=== PATIENT | female | born 1955 | race Caucasian/White ===

== ENCOUNTER 2021-03-25 01:21 | Emergency (ER) | payer MEDICARE, OTHER ==
[2021-03-25] MEDS ORDERED: HYDROmorphone 0.5 MG/0.5 ML Syringe IM ONE (01:49)
--- NOTE | 2021-03-25 01:52 | EDM.PDOC ---
ED HPI GENERAL MEDICAL PROBLEM - General Chief Complaint: Upper Extremity Injury/Pain Stated Complaint: WRIST INJURY Time Seen by Provider: 03/25/21 01:43 Source of Information: Reports: Patient, Family History Limitations: Reports: No Limitations - History of Present Illness INITIAL COMMENTS - FREE TEXT/NARRATIVE: Marilee Mendenhall is a 65-year-old female from [place] who is vacationing up here and presents to the ED for evaluation of bilateral wrist pain, right elbow pain, and right foot pain after slipping and falling down a stairway resulting in her hitting her head on the ground. The patient was in her usual state of health going down a curved stairway when she missed stepped causing her to fall down about 4-5 stairs landing on outstretched arms and striking her head on the ground. There was no loss of consciousness. The patient denies any vision changes, headache, nausea or vomiting. She has substantial bilateral wrist pain and elbow pain with deformity of the right wrist. She did reports numbness in the right third digit. She has limited range of motion since the fall. She also thinks that she injured her right foot in the fall. bilateral lower arms Pain Score (Numeric/FACES): 10 - Related Data Allergies Allergy/AdvReac Type Severity Reaction Status Date / Time No Known Allergies Allergy Verified 03/25/21 01:51 Home Meds: Home Meds NK [No Known Home Meds] 03/25/21 [History] Social & Family History - Tobacco Use Tobacco Use Status *Q: Never Tobacco User - Caffeine Use Caffeine Use: Reports: Coffee - Recreational Drug Use Recreational Drug Use: No Review of Systems - Review of Systems Review Of Systems: See Below Constitutional: Reports: No Symptoms Eyes: Reports: No Symptoms Ears: Reports: No Symptoms, Previous Injury Nose: Reports: No Symptoms Mouth/Throat: Reports: No Symptoms Respiratory: Reports: No Symptoms Cardiovascular: Reports: No Symptoms GI/Abdominal: Reports: No Symptoms Genitourinary: Reports: No Symptoms Musculoskeletal: Reports: Foot Pain (Right foot pain), Joint Pain (Bilateral wrist pain, right elbow pain), Joint Swelling (Bilateral wrist swelling) Skin: Reports: Wound (Puncture wound on the volar distal forearm likely due to the proximal segment of the fractured radius coming through the skin), Other (Abrasion on the lateral right elbow) Neurological: Reports: Confusion (Initially after the fall and hitting her head the patient exhibited confusion for about 5 minutes. Currently denies any headache) Psychiatric: Reports: No Symptoms ED EXAM, GENERAL - Physical Exam Exam: See Below Exam Limited By: No Limitations General Appearance: Alert, Moderate Distress, Obese Eye Exam: Bilateral Eye: EOMI, PERRL Ears: Normal External Exam, Normal TMs Nose: Normal Inspection Throat/Mouth: Normal Inspection, Normal Lips, Normal Oropharynx, Normal Voice, No Airway Compromise Head: Atraumatic, Normocephalic Neck: Normal Inspection, Supple, Non-Tender Respiratory/Chest: No Respiratory Distress, Lungs Clear, Normal Breath Sounds Cardiovascular: Normal Peripheral Pulses, Regular Rate, Rhythm, No Murmur Back Exam: Normal Inspection Extremities: Normal Capillary Refill, Joint Swelling (Obvious swelling and deformity of the right wrist with swelling of the volar region. There is a puncture wound likely due to the proximal segment of the fractured radius coming through the skin. Significant swelling of the left wrist with less obvious deformity.), Limited Range of Motion (Limited range of motion of both wrists) Neurological: Alert, Oriented, CN II-XII Intact, Normal Cognition, Sensory/Motor Deficit (Numbness in the right third finger.) Psychiatric: Normal Affect, Normal Mood Skin Exam: Warm, Dry, Wound/Incision (Puncture wound on the volar distal forearm on the right likely due to an open fracture.) Lymphatic: No Adenopathy ED TRAUMA EXTREMITY PROCEDURES - Splinting Left Upper Extremity Splint Site: Left wrist Pre-Procedure NV Status: Normal Post-Procedure NV Status: Normal Splint Material: Fiberglass Splint Design: Sugar Tong Applied & Form Fitted By: Provider Provider Post-Splint Application NV Check: NV Status Normal, Good Position Complications: No Right Upper Extremity Splint Site: Right wrist Pre-Procedure NV Status: Abnormal (Numbness and tingling in the right third finger) Post-Procedure NV Status: Abnormal (Numbness and tingling in the right third finger persists but no new change in neurovascular status) Splint Material: Fiberglass Splint Design: Sugar Tong Applied & Form Fitted By: Provider Provider Post-Splint Application NV Check: Good Position Complications: No Course - Vital Signs Last Recorded V/S: Last Vital Signs Temp 36.3 C 03/25/21 01:49 Pulse 80 03/25/21 01:49 Resp 15 03/25/21 01:49 BP 155/88 H 03/25/21 01:49 Pulse Ox 97 03/25/21 01:49 - Orders/Labs/Meds Orders: Active Orders 24 hr Category Date Time Status Elbow Min 3V Rt [CR] Stat Exams 03/25/21 02:17 Taken Foot Comp Min 3V Rt [CR] Stat Exams 03/25/21 01:49 Taken Head wo Cont [CT] Stat Exams 03/25/21 01:49 Taken Wrist Comp Min 3V Bi [CR] Stat Exams 03/25/21 01:49 Ordered Meds: Medications Discontinued Medications Generic Name Dose Route Start Last Admin Trade Name Freq PRN Reason Stop Dose Admin Hydromorphone HCl 0.5 mg 03/25/21 01:49 03/25/21 02:05 Hydromorphone 0.5 Mg/0.5 Ml Syringe IM 03/25/21 01:50 0.5 mg ONETIME ONE Administration - Radiology Interpretation Free Text/Narrative:: I reviewed the x-ray of the right foot: No evidence for acute osseous abnormalities. I reviewed the three-view x-ray of the right elbow: There is no evidence for acute osseous abnormalities. There is no anterior posterior sail sign. I reviewed the 6 view x-ray of the bilateral wrists: There is significant displacement of the distal right radius and ulna with dorsal angulation and lateral shifting. There is impaction of the distal left radial head with 50 to 60 degree dorsal angulation of the distal segment. There is a left ulnar styloid fracture that is minimally displaced. I reviewed the CT of the head without contrast showing no acute intracranial abnormalities including hemorrhage, mass, or midline shift. There is no acute cranial abnormalities. - Re-Assessments/Exams Free Text/Narrative Re-Assessment/Exam: 03/25/21 03:19 diaz the findings of the CT of the head and x-rays with the family. She has a significantly displaced open fracture of the right wrist with marked lateral displacement of the distal segments of the radius and ulna as well as dorsal angulation of both. The left wrist shows impaction of the distal radial head with dorsal angulation of the distal segment approximately 50 to 60 degrees and a mildly displaced left ulnar styloid fracture. X-rays of the right foot and right elbow are unremarkable for acute changes. CT of the head without contrast was unremarkable for any acute abnormalities including hemorrhage, mass, or midline shift. There were no cranial abnormalities noted either. As the right wrist fracture is an open fracture likely due to bone coming through the skin, will the patient was given Ancef 1 g IV and we updated her tetanus with a Tdap. This will likely need surgical intervention and they are normally [place] patient so I contacted [facility] to arrange for transfer and further evaluation by the trauma service. I discussed the case with Dr. Painting in the emergency room who accepts the patient in transfer. The patient will go by private vehicle. We will give her a dose of Dilaudid after completion of her Ancef prior to going by private vehicle. Departure - Departure Time of Disposition: 04:15 Disposition: DC/Tfer to [facility] 02 Clinical Impression: Contusion of right elbow, initial encounter, Right foot pain Open fracture of right distal radius and ulna Qualifiers: Encounter type: initial encounter Open fracture type: open type I or II Qualified Code(s): S52.501B - Unspecified fracture of the lower end of right radius, initial encounter for open fracture type I or II; S52.601B - Unspecified fracture of lower end of right ulna, initial encounter for open fracture type I or II Closed fracture of distal end of left radius with ulna Qualifiers: Encounter type: initial encounter Qualified Code(s): S52.502A - Unspecified fracture of the lower end of left radius, initial encounter for closed fracture; S52.602A - Unspecified fracture of lower end of left ulna, initial encounter for closed fracture Fall down stairs Qualifiers: Encounter type: initial encounter Qualified Code(s): W10.8XXA - Fall (on) (from) other stairs and steps, initial encounter Head injury, closed, without LOC Qualifiers: Encounter type: initial encounter Qualified Code(s): S09.90XA - Unspecified injury of head, initial encounter - Discharge Information Instructions: Cast or Splint Care, Adult, [id number], Elbow Contusion, [id number], Radial Fracture, Head Injury, Adult, [id number], Foot Pain, Ulnar Fracture Referrals: PCP,None [Primary Care Provider] - Forms: ED Department Discharge Sepsis Event Note (ED) - Evaluation Sepsis Screening Result: No Definite Risk - Focused Exam Vital Signs: Vital Signs Temp Pulse Resp BP Pulse Ox 03/25/21 01:49 36.3 C 80 15 155/88 H 97 03/25/21 01:47 36.3 C 80 15 155/88 H 97 - Problem List & Annotations (1) Closed fracture of distal end of left radius with ulna SNOMED Code(s): 72048147 Code(s): S52.502A - UNSP FRACTURE OF THE LOWER END OF LEFT RADIUS, INIT; S52.602A - UNSP FRACTURE OF LOWER END OF LEFT ULNA, INIT FOR CLOS FX Status: Acute Priority: High Current Visit: Yes Qualifiers: Encounter type: initial encounter Qualified Code(s): S52.502A - Unspecified fracture of the lower end of left radius, initial encounter for closed fracture; S52.602A - Unspecified fracture of lower end of left ulna, initial encounter for closed fracture (2) Contusion of right elbow, initial encounter SNOMED Code(s): 35194805 Code(s): S50.01XA - CONTUSION OF RIGHT ELBOW, INITIAL ENCOUNTER Status: Acute Priority: High Current Visit: Yes (3) Fall down stairs SNOMED Code(s): 440299732 Code(s): W10.8XXA - FALL (ON) (FROM) OTHER STAIRS AND STEPS, INITIAL ENCOUNTER Status: Acute Priority: High Current Visit: Yes Qualifiers: Encounter type: initial encounter Qualified Code(s): W10.8XXA - Fall (on) (from) other stairs and steps, initial encounter (4) Head injury, closed, without LOC SNOMED Code(s): 843690296680, 261857877738 Code(s): S09.90XA - UNSPECIFIED INJURY OF HEAD, INITIAL ENCOUNTER Status: Acute Priority: High Current Visit: Yes Qualifiers: Encounter type: initial encounter Qualified Code(s): S09.90XA - Unspecified injury of head, initial encounter (5) Open fracture of right distal radius and ulna SNOMED Code(s): 93951310 Code(s): S52.501B - UNSP FX THE LOWER END OF R RADIUS, INIT FOR OPN FX TYPE I/2; S52.601B - UNSP FX LOWER END OF RIGHT ULNA, INIT FOR OPN FX TYPE I/2 Status: Acute Priority: High Current Visit: Yes Qualifiers: Encounter type: initial encounter Open fracture type: open type I or II Qualified Code(s): S52.501B - Unspecified fracture of the lower end of right radius, initial encounter for open fracture type I or II; S52.601B - Unspecified fracture of lower end of right ulna, initial encounter for open fracture type I or II (6) Right foot pain SNOMED Code(s): 55550456 Code(s): M79.671 - PAIN IN RIGHT FOOT Status: Acute Priority: High Current Visit: Yes - Problem List Review Problem List Initiated/Reviewed/Updated: Yes - My Orders Last 24 Hours: My Active Orders 03/25/21 01:49 Foot Comp Min 3V Rt [CR] Stat Head wo Cont [CT] Stat Wrist Comp Min 3V Bi [CR] Stat 03/25/21 02:17 Elbow Min 3V Rt [CR] Stat - Assessment/Plan Last 24 Hours: My Active Orders 03/25/21 01:49 Foot Comp Min 3V Rt [CR] Stat Head wo Cont [CT] Stat Wrist Comp Min 3V Bi [CR] Stat 03/25/21 02:17 Elbow Min 3V Rt [CR] Stat
[2021-03-25] MEDS ORDERED: Diphtheria,Pertussis(Acell),Tetanus Vaccine 0.5 ML Syringe IM ONE (03:06)
[2021-03-25] MEDS ORDERED: Sodium Chloride 0.9% 10 ML Syringe FLUSH PRN (03:06)
[2021-03-25] MEDS ORDERED: ceFAZolin 1 GM in Sodium Chloride 0.9% 50 ML IV ONE (03:06)
[2021-03-25] MEDS ORDERED: HYDROmorphone 0.5 MG/0.5 ML Syringe IVPUSH ONE (03:45)
--- NOTE | 2021-03-25 03:45 | CRLCT ---
For Patients: As a result of the Century Cures Act, medical imaging exams and procedure reports are released immediately into your electronic medical record. You may view this report before your referring provider. If you have questions, please contact your health care provider. INDICATION: Fall COMPARISON: none TECHNIQUE: A CT volumetric acquisition was performed of the brain without IV contrast. Please note that all CT scans at this facility use dose modulation, iterative reconstruction, and/or weight-based dosing when appropriate to reduce radiation dose to as low as reasonably achievable. FINDINGS: The CT images reveal a normal appearance of the cerebral ventricles and basal cisterns. There is no evidence of intracranial hemorrhage, tissue infarction or mass effect. The mastoid air cells and middle ear cavities are clear. The calvarium appears intact. There is normal aeration of the visualized paranasal sinuses. IMPRESSION: Negative head CT. Please note that all CT scans at this facility use dose modulation, iterative reconstruction, and/or weight-based dosing when appropriate to reduce radiation dose to as low as reasonably achievable. Dictated by Hai Vidales MD @ 03/25/2021 3:44:[address] Hai Vidales @ Mar 25 2021 3:44AM
--- NOTE | 2021-03-25 09:54 | CR ---
Wrist Comp Min 3V Bi, Elbow Min 3V Rt CLINICAL HISTORY: Injury FINDINGS: There is a comminuted impacted fracture of the distal radius. There is a displaced fracture of the distal ulna. There is a fracture of the ulnar styloid. There is impingement of the distal ulna on the proximal carpal row. Impression: Distal radial ulnar fractures Wrist Comp Min 3V Bi, Elbow Min 3V Rt CLINICAL HISTORY: Injury FINDINGS: No acute fracture or dislocation is noted. The fat pads are in normal position. Impression: Negative
--- NOTE | 2021-03-25 09:59 | CR ---
FOOT RIGHT 3 views CLINICAL HISTORY:Fall FINDINGS:There is a fracture of the second proximal phalanx. There is a small ossific density off the base of the second proximal phalanx medially. This could represent avulsion. Chronology is uncertain. IMPRESSION: Fracture of the second proximal phalanx with involvement of the articular surface of the PIP joint. Possible periarticular avulsion at the base of the second proximal phalanx
== END 2021-03-25 04:52 ==
LOC: JP.ED 01:21
DX: S52.591B Other fractures of lower end of right radius, initial encounter for open fracture type I or II (principal); S52.691B Other fracture of lower end of right ulna, initial encounter for open fracture type I or II; S09.90XA Unspecified injury of head, initial encounter; S50.01XA Contusion of right elbow, initial encounter; M79.671 Pain in right foot; Z23 Encounter for immunization; W10.8XXA Fall (on) (from) other stairs and steps, initial encounter
CPT/HCPCS: 29125; 70450; 73080; 73110; 73630; 90471; 90715; 96365; 96372; 96375; 99285; J0690; J1170